=== PATIENT | male | born 1935 | race Caucasian/White ===

== ENCOUNTER → 2022-01-12 | Outpatient (CLI) | payer OTHER | END | disposition home or self-care (01) | LOC: RESCLI 01:02 | PROVIDERS: ATTEND Family Medicine | DX: G20 Parkinson's disease (principal); I11.9 Hypertensive heart disease without heart failure; I25.10 Atherosclerotic heart disease of native coronary artery without angina pectoris; E78.5 Hyperlipidemia, unspecified; R35.0 Frequency of micturition; R39.15 Urgency of urination; I48.91 Unspecified atrial fibrillation; E03.2 Hypothyroidism due to medicaments and other exogenous substances; E55.9 Vitamin D deficiency, unspecified; E53.8 Deficiency of other specified B group vitamins; F03.90 Unspecified dementia, unspecified severity, without behavioral disturbance, psychotic disturbance, mood disturbance, and anxiety; N40.0 Benign prostatic hyperplasia without lower urinary tract symptoms; Z79.899 Other long term (current) drug therapy; Z79.82 Long term (current) use of aspirin; Z79.01 Long term (current) use of anticoagulants ==

== ENCOUNTER 2022-02-18 08:49 | Emergency (ER) | payer OTHER ==
[~2022-02-18] VITALS: Ht 170.1 cm; Wt 90.7 kg
[~2022-02-18 08:49] MED LIST: XARE20MG PO
== END 2022-02-18 09:40 | disposition home or self-care (01) ==
LOC: ED 08:49
DX: S80.11XA Contusion of right lower leg, initial encounter (principal); I48.91 Unspecified atrial fibrillation; F03.90 Unspecified dementia, unspecified severity, without behavioral disturbance, psychotic disturbance, mood disturbance, and anxiety; Z79.899 Other long term (current) drug therapy; Z95.0 Presence of cardiac pacemaker; Z79.82 Long term (current) use of aspirin; X58.XXXA Exposure to other specified factors, initial encounter; Y93.89 Activity, other specified; Y92.89 Other specified places as the place of occurrence of the external cause; Y99.8 Other external cause status

== ENCOUNTER 2022-07-06 01:11 | Emergency (ER) | payer OTHER ==
[~2022-07-06] VITALS: Ht 172.7 cm; Wt 93.0 kg
[2022-07-06 02:44] LABS: BASO % 0.2 % (0.0-1.0); HEMATOCRIT 36.9 % (42.0-52.0); LYMPH # 0.8 10*3/uL (1.3-4.4); LYMPH % 8.3 % (27.0-41.0); MEAN CELL VOLUME 101.1 fl (80.0-94.0); MEAN CORPUSCULAR HGB 32.6 pg (27.0-31.0); MEAN CORPUSCULAR HGB CONC 32.2 g/dl (33.0-37.0); MEAN PLATELET VOLUME 9.4 fl (9.6-12.3); MONO # 1.1 10*3/uL (0.1-1.0); NEUT % 80.1 % (47.0-73.0); PLATELET COUNT AUTOMATED 229 10*3/uL (130-400); RED BLOOD COUNT 3.65 10*6/uL (4.50-5.90); RED CELL DISTRI WIDTH 14.2 % (0-14.5); WHITE BLOOD COUNT 9.9 10*3/uL (4.8-10.8)
[2022-07-06 02:56] LABS: ACT PARTIAL THROMBO TIME 36.1 SECONDS (20.0-32.1); INTERNATIONAL NORM RATIO 1.1 (2.0-3.5)
[2022-07-06 03:01] LABS: ALKALINE PHOSPHATASE 86 U/L (46-116); BUN 18 mg/dl (9-23); CHLORIDE 106 mmol/L (98-107); POTASSIUM 4.4 mmol/L (3.4-5.1); TOTAL PROTEIN 6.3 gm/dL (6.0-8.0)
[2022-07-06 03:02] LABS: SGPT/ALT < 7 U/L (10-49)
[2022-07-06] MEDS ORDERED: FLOMAX0.4 MG PO ×2 (05:08→05:17)
== END 2022-07-06 05:20 | disposition home or self-care (01) ==
LOC: ED 01:11
PROVIDERS: Emergency Medicine
DX: M54.50 Low back pain, unspecified (principal); Z79.899 Other long term (current) drug therapy

== ENCOUNTER → 2023-02-05 | Outpatient (CLI) | payer OTHER ==
[~2023-02-05] MED LIST changes: +FLOMAX0.4 MG PO
== END | disposition home or self-care (01) ==
LOC: RESCLI 01:45
PROVIDERS: ATTEND Internal Medicine
DX: I48.91 Unspecified atrial fibrillation (principal); E03.2 Hypothyroidism due to medicaments and other exogenous substances; F32.9 Major depressive disorder, single episode, unspecified; I25.10 Atherosclerotic heart disease of native coronary artery without angina pectoris; E55.9 Vitamin D deficiency, unspecified; G20 Parkinson's disease; R35.0 Frequency of micturition; F03.90 Unspecified dementia, unspecified severity, without behavioral disturbance, psychotic disturbance, mood disturbance, and anxiety; N40.0 Benign prostatic hyperplasia without lower urinary tract symptoms; I10 Essential (primary) hypertension; E78.5 Hyperlipidemia, unspecified; Z82.49 Family history of ischemic heart disease and other diseases of the circulatory system; Z98.890 Other specified postprocedural states; Z79.82 Long term (current) use of aspirin; Z79.01 Long term (current) use of anticoagulants; Z79.899 Other long term (current) drug therapy

== ENCOUNTER → 2023-12-04 | Outpatient (CLI) | payer MEDICARE | END | disposition home or self-care (01) | LOC: CARD 12:59 | PROVIDERS: ATTEND Student in an Organized Health Care Education/Training Program | DX: I08.0 Rheumatic disorders of both mitral and aortic valves (principal); I50.9 Heart failure, unspecified; Z95.0 Presence of cardiac pacemaker ==

== ENCOUNTER 2023-12-07 20:36 | Emergency (ER) | payer MEDICARE ==
[~2023-12-07] VITALS: Ht 167.6 cm; Wt 95.3 kg
[2023-12-07 20:59] LABS: BASO % 0.4 % (0.0-1.0); EOS % 0.6 % (1.0-4.0); LYMPH # 1.2 10*3/uL (1.3-4.4); LYMPH % 17.6 % (27.0-41.0); MEAN CELL VOLUME 102.6 fl (80.0-94.0); MEAN CORPUSCULAR HGB 32.6 pg (27.0-31.0); MEAN CORPUSCULAR HGB CONC 31.8 g/dl (33.0-37.0); MEAN PLATELET VOLUME 8.8 fl (9.6-12.3); MONO # 0.9 10*3/uL (0.1-1.0); MONO % 12.2 % (3.0-9.0); NEUT # 4.8 10*3/uL (2.3-7.9); NEUT % 68.9 % (47.0-73.0); PLATELET COUNT AUTOMATED 225 10*3/uL (130-400); RED CELL DISTRI WIDTH 14.2 % (0-14.5)
[2023-12-07] MEDS ORDERED: 8 HOUR650 MG PO (21:01)
[2023-12-07] MEDS ORDERED: AMIODARONE HYD200 MG PO (21:02)
[2023-12-07] MEDS ORDERED: ASPIRIN81 M1 PO (21:02)
[2023-12-07] MEDS ORDERED: LIPITOR20 MG PO (21:03)
[2023-12-07] MEDS ORDERED: BUSPIRONE10 MG PO (21:03)
[2023-12-07] MEDS ORDERED: DONEPEZIL HCL10 MG PO (21:04)
[2023-12-07] MEDS ORDERED: CARBIDOPA-LEVO1 EAC6 PO (21:04)
[2023-12-07] MEDS ORDERED: FUROSEMIDE40 MG PO (21:05)
[2023-12-07] MEDS ORDERED: GEMTESA75 MG PO (21:06)
[2023-12-07] MEDS ORDERED: GLYCOPYRROLATE1 MG PO (21:07)
[2023-12-07] MEDS ORDERED: KETOCONAZOLE 1120 ML INTRADERM (21:08)
[2023-12-07] MEDS ORDERED: LEVOTHYROXINE75 MC1 PO (21:09)
[2023-12-07] MEDS ORDERED: POTASSIUM CHLO20 MEQ PO (21:09)
[2023-12-07 21:10] LABS: ACT PARTIAL THROMBO TIME 25.2 SECONDS (20.0-32.1)
[2023-12-07] MEDS ORDERED: VITAMIN B-121000 MC2 PO (21:10)
[2023-12-07] MEDS ORDERED: TRAZODONE100 MG PO (21:10)
[2023-12-07] MEDS ORDERED: CELECOXIB100 M1 PO (21:12)
[2023-12-07 21:17] LABS: ALKALINE PHOSPHATASE 97 U/L (46-116); BUN 22 mg/dl (9-23); CHLORIDE 105 mmol/L (98-107); POTASSIUM 4.1 mmol/L (3.4-5.1); SGPT/ALT < 7 U/L (5-49); TOTAL PROTEIN 6.2 gm/dL (6.0-8.0)
== END 2023-12-07 23:45 | disposition home or self-care (01) ==
LOC: ED 20:36
PROVIDERS: Internal Medicine
DX: I95.89 Other hypotension (principal); F41.9 Anxiety disorder, unspecified; F32.A Depression, unspecified; I48.91 Unspecified atrial fibrillation; F03.90 Unspecified dementia, unspecified severity, without behavioral disturbance, psychotic disturbance, mood disturbance, and anxiety

== ENCOUNTER 2024-03-22 10:35 | Emergency (ER) | payer MEDICARE ==
[~2024-03-22] VITALS: Wt 99.3 kg
[~2024-03-22 10:35] MED LIST changes: +8 HOUR650 MG PO; +AMIODARONE HYD200 MG PO; +ASPIRIN81 M1 PO; +BUSPIRONE10 MG PO; +CARBIDOPA-LEVO1 EAC6 PO; +CELECOXIB100 M1 PO; +DONEPEZIL HCL10 MG PO; +FUROSEMIDE40 MG PO; +GEMTESA75 MG PO; +GLYCOPYRROLATE1 MG PO; +KETOCONAZOLE 1120 ML INTRADERM; +LEVOTHYROXINE75 MC1 PO; +LIPITOR20 MG PO; +POTASSIUM CHLO20 MEQ PO; +TRAZODONE100 MG PO; +VITAMIN B-121000 MC2 PO
[2024-03-22 11:00] LABS: BASO % 0.3 % (0.0-1.0); EOS % 0.5 % (1.0-4.0); HEMATOCRIT 37.2 % (42.0-52.0); LYMPH # 1.4 10*3/uL (1.3-4.4); LYMPH % 22.4 % (27.0-41.0); MEAN CELL VOLUME 104.2 fl (80.0-94.0); MEAN CORPUSCULAR HGB 33.3 pg (27.0-31.0); MEAN PLATELET VOLUME 8.5 fl (9.6-12.3); MONO # 0.7 10*3/uL (0.1-1.0); MONO % 12.3 % (3.0-9.0); NEUT # 3.9 10*3/uL (2.3-7.9); NEUT % 64.2 % (47.0-73.0); PLATELET COUNT AUTOMATED 232 10*3/uL (130-400); RED BLOOD COUNT 3.57 10*6/uL (4.50-5.90); RED CELL DISTRI WIDTH 14.1 % (0-14.5)
[2024-03-22 11:22] LABS: BUN 13 mg/dl (9-23); CHLORIDE 102 mmol/L (98-107)
[2024-03-22 11:31] LABS: ACT PARTIAL THROMBO TIME 24.7 SECONDS (20.0-32.1)
[2024-03-22] MEDS ORDERED: CARBIDOPA-LEVO1 EAC6 PO (12:20)
[2024-03-22] MEDS ORDERED: VITAMIN D250 MC1 PO (12:23)
[2024-03-22] MEDS ORDERED: HYDROXYZINE HCL25 MG PO (12:24)
[2024-03-22] MEDS ORDERED: Kenalog 0.5% Cr15 GM T (12:26)
== END 2024-03-22 15:03 ==
LOC: ED 10:35
PROVIDERS: Internal Medicine
DX: R07.89 Other chest pain (principal); R51.9 Headache, unspecified; M79.602 Pain in left arm; F41.9 Anxiety disorder, unspecified; F32.A Depression, unspecified; F03.90 Unspecified dementia, unspecified severity, without behavioral disturbance, psychotic disturbance, mood disturbance, and anxiety; I48.91 Unspecified atrial fibrillation

== ENCOUNTER → 2024-07-28 | Outpatient (CLI) | payer OTHER ==
[~2024-07-28] MED LIST changes: +HYDROXYZINE HCL25 MG PO; +Kenalog 0.5% Cr15 GM T; +VITAMIN D250 MC1 PO
== END | disposition home or self-care (01) ==
LOC: RESCLI 01:40
PROVIDERS: ATTEND Internal Medicine
DX: I50.9 Heart failure, unspecified (principal); I25.10 Atherosclerotic heart disease of native coronary artery without angina pectoris; N40.0 Benign prostatic hyperplasia without lower urinary tract symptoms; F03.90 Unspecified dementia, unspecified severity, without behavioral disturbance, psychotic disturbance, mood disturbance, and anxiety; I48.91 Unspecified atrial fibrillation; F41.9 Anxiety disorder, unspecified; M19.90 Unspecified osteoarthritis, unspecified site; G89.29 Other chronic pain; E03.9 Hypothyroidism, unspecified; G20.B1 Parkinson's disease with dyskinesia, without mention of fluctuations; E78.5 Hyperlipidemia, unspecified; E55.9 Vitamin D deficiency, unspecified; E56.9 Vitamin deficiency, unspecified; L85.3 Xerosis cutis; Z79.899 Other long term (current) drug therapy; Z79.82 Long term (current) use of aspirin; Z98.890 Other specified postprocedural states

== ENCOUNTER 2025-02-26 01:43 | Emergency (ER) | payer OTHER ==
[~2025-02-26] VITALS: Ht 175.2 cm; Wt 93.2 kg
== END 2025-02-26 03:35 ==
LOC: ED 01:43
DX: G20.A1 Parkinson's disease without dyskinesia, without mention of fluctuations (principal); Z79.899 Other long term (current) drug therapy; Z79.82 Long term (current) use of aspirin; W18.39XA Other fall on same level, initial encounter; Y93.89 Activity, other specified; Y92.89 Other specified places as the place of occurrence of the external cause; Y99.8 Other external cause status